=== PATIENT | male | born 1945 | race Caucasian/White ===

== ENCOUNTER 2018-12-07 16:09 | Inpatient (IN) | payer MEDICARE, MEDICAID ==
[~2018-12-07] VITALS: Ht 170.2 cm; Wt 66.0 kg
[~2018-12-07 16:09] MED LIST: ALB0.5UD IH; AMLO5TAB16 PO; FLUT1DIS4 INH; LANS15CA10 PO
[2018-12-07 17:08] LABS: BASOPHILS % (AUTO) 0.2 % (0-1); EOSINOPHILS % (AUTO) 0.1 % (0-6); HEMATOCRIT 42.3 % (42.0-52.0); HEMOGLOBIN 13.9 g/dl (14.0-17.9); LYMPHOCYTES # (AUTO) 1.6 X10'3 (1.1-4.8); LYMPHOCYTES % (AUTO) 10.1 % (21-51); MEAN CORPUSCULAR HEMOGLOBIN 29.9 PG (27.0-31.0); MEAN CORPUSCULAR HGB CONC 32.9 g/dL (33.0-36.5); MEAN CORPUSCULAR VOLUME 90.7 FL (78-98); MONOCYTES # (AUTO) 1.3 X10'3 (0-0.9); MONOCYTES % (AUTO) 8.1 % (2-12); NEUTROPHILS % (AUTO) 81.5 % (42-75); PLATELET COUNT 190 X10'3 (140-440); RED BLOOD COUNT 4.67 X10'6 (4.70-6.10); RED CELL DISTRIBUTION WIDTH 15.2 % (11.5-14.5); WHITE BLOOD COUNT 15.9 X10'3 (4.5-11.0)
[2018-12-07 17:20] LABS: ALANINE AMINOTRANSFERASE 31 U/L (12-78); ALBUMIN 3.8 G/DL (3.4-5.0); ALBUMIN/GLOBULIN RATIO 0.8 (1.1-1.5); ALKALINE PHOSPHATASE 129 IU/L (46-116); ANION GAP 13 (8-16); ASPARTATE AMINO TRANSFERASE 31 U/L (10-37); BILIRUBIN,TOTAL 0.6 MG/DL (0.1-1.0); BLOOD UREA NITROGEN 27 MG/DL (7-18); BUN/CREATININE RATIO 26.7 (5.4-32.0); CALCIUM 9.3 MG/DL (8.5-10.1); CHLORIDE 105 MMOL/L (99-107); CREATININE 1.01 MG/DL (0.60-1.10); GLUCOSE 128 MG/DL (70-104); POTASSIUM 4.1 MMOL/L (3.5-5.1); SODIUM 140 MMOL/L (135-145); TOTAL CARBON DIOXIDE 22.3 MMOL/L (24-32); TOTAL PROTEIN 8.5 G/DL (6.4-8.2); eGFR 73 ML/MIN
[2018-12-07] MEDS ORDERED: ondansetron/PF 4mg/2ml inj IV ONE (20:10)
--- NOTE | 2018-12-07 21:03 | NUR ---
attempted to retrieve urine and gave patient a urinal.
--- NOTE | 2018-12-07 21:14 | NUR ---
COOKIE ZARATE ADVISED TO STRAIGHT CATH PATIENT BECAUSE HE WAS UNABLE TO PRODUCE. DURING STRAIGHT CATH ATTEMPT, PATIENT REFUSED AND SAID TO STOP
[2018-12-07] MEDS ORDERED: CefTRIAXone 2gm/D5W 50ml 50 ML IV ONE (21:20)
[2018-12-07] MEDS ORDERED: azithromycin/NS 500mg/250ml 250 ML IV ONE (21:20)
[2018-12-07 21:49] LABS: D-DIMER 1.51 MG/L FEU (0-0.50)
[2018-12-08] MEDS ORDERED: iohexol 350MG/ML 100ml bottle IV ONE (00:15)
[2018-12-08] MEDS ORDERED: FAMO40OR4 GT (01:33)
[2018-12-08] MEDS ORDERED: ondansetron/PF 4mg/2ml inj IV ONE (01:40)
--- NOTE | 2018-12-08 03:38 | NUR ---
PATIENT READY FOR DISCHARGE. HAVE TRIED TWICE TO REACH HIS FRIEND/CAREGIVER WHOM THE PATIENT LIVES WITH. NO ANSWER, LEFT MESSAGE. NO OTHER INFORMATION FOR DECAL DECORATOR AVAILABLE. HAVE PATIENT'S HOME ADDRESS, BUT CANNOT SEND PATIENT WITHOUT CONFIRMATION THAT CAREGIVER IS AVAILABLE. PATIENT WITH CVA HX, WHEELCHAIR BOUND.
--- NOTE | 2018-12-08 07:15 | NUR ---
Attempted to reach the patient's caregiver, Meena Beatty, as he reported is her name. Message left for Meena to return the call to the ED. Pt's identifying information not left on the message due to questions about the patient's report due to poor historian.
--- NOTE | 2018-12-08 07:31 | NUR ---
Pt's drysorb chux changed and new dry chux placed under the patient due to incontinence of urine. Pt continues to refuse straight cath for urine specimen.
--- NOTE | 2018-12-08 08:39 | NUR ---
Spoke with Sales Operations Analyst regarding the patient's plan for discharge and unable to reach next of kin or caregiver. Phoned all the numbers available to ED staff and unable to locate caregivers or family members. wind operations manager will be available to assist after the CM morning meeting.
--- NOTE | 2018-12-08 09:39 | NUR ---
Spoke with the patient's caregiver Meena who reports the patient is not safe to bring back to her care in the home environment. She reports she was told to bring him to the Emergency department and not answer her phone when the hospital is attempting to reach her. Meena reports the patient is "not of sound mind" and "keeps doing things to harm himself." Meena informed we will speak with Case Management and get back with her regarding the plan of care.
--- NOTE | 2018-12-08 10:36 | NUR ---
Discussed the plan for discharge with the patient. Pt reports he is willing to go home. Asked patient about suicidal ideations or attempts to harm himself and patient denied these thoughts or attempts. Paged Case Management to attempt to assist with plans for discharge to home.
--- NOTE | 2018-12-08 11:27 | NUR ---
kelton alexander [phone]
--- NOTE | 2018-12-08 11:34 | NUR ---
Pt was incontinent of urine. Pt's drysorb chux changed and new ones replaced. Pt's skin cleansed and is noted to be intact.
--- NOTE | 2018-12-08 11:41 | NUR ---
Pt was noted attempting to use the telephone. When asked who he is attempting to contact he responded "my girlfriend." Assisted the patient to dial the phone to call his significant other/caregiver and a voicemail answered. Unable to reach Meena at this time. Asked Legal Administrator to phone Case Management about the situation.
--- NOTE | 2018-12-08 12:55 | NUR ---
spoke with kelton alexander, shes refusing to take care of him. states, im unable to take care of him, his mind is not right and hes doing things to harm himself. said she will call me back and hung up on me.
--- NOTE | 2018-12-08 13:03 | NUR ---
yamileth corley mgr called, and will call back after ua results r back
[2018-12-08] MEDS ORDERED: LIDOcaine 2% 10ml TOPICAL JELLY (Urojet) MM ONE (13:15)
--- NOTE | 2018-12-08 14:00 | NUR ---
PT ANSWERS QUESTIONS APPROPRIATEY, AND COOPERATIVE WITH CARE. NO SELF HARM HAS BEEN NOTED. PT STATES, "IS GARY NOT LETTING ME GO BACK HOME"
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
[2018-12-08 14:10] LABS: CLARITY,URINE CLEAR (Clear); COLOR,URINE YELLOW (Yellow); GLUCOSE, URINE NEGATIVE (Neg); KETONES,URINE NEGATIVE (Neg); LEUKOCYTE ESTERASE ,URINE NEGATIVE (Neg); NITRITES, URINE NEGATIVE (Neg); OCCULT BLOOD,URINE TRACE-INTACT (Neg); PH,URINE 6.5 (4.8-8.0); PROTEIN,URINE NEGATIVE (Neg); UROBILINOGEN,URINE 0.2 E.U/dL (0.2-1.0)
[2018-12-08 14:11] LABS: UA COLLECTION TYPE STRAIGHT CATH
[2018-12-08 14:19] LABS: SQUAMOUS EPITHELIAL CELL,UR FEW /LPF (FEW)
[2018-12-08 14:20] LABS: BACTERIA,URINE FEW /HPF (Neg); MUCUS STRANDS FEW /LPF (Neg); RBC,URINE 0-2 /HPF (0-2); WBC,URINE 0-4 /HPF (0-4)
[2018-12-08 14:21] LABS: HYALINE CASTS 0-3 /LPF (NEGATIVE)
--- NOTE | 2018-12-08 15:00 | NUR ---
JYOTI FROM CASE MGT CALLED AND STATED THAT SHE WAS TOLD THAT PT DOES NOT MEET CRITERIA FOR ADMISSION HAVING A UTI. STATED THAT SHE WAS GOING TO CONTACT ADARSH WITH GLUE JOINTER OPERATOR FOR ASSISTANCE
--- NOTE | 2018-12-08 16:32 | NUR ---
LEFT MESSAGE ON GARY'S RECORDED STATING, "RN OTOLARYNGOLOGY HAS BEEN TRYING TO FIND PLACEMENT BUT DOES TAKE TIME''. AND HE IS NOT ELIGIBLE AT THIS TIME FOR ADMISSION INTO THE HOSPITAL. IM JUST GIVING YOU A HEADS UP THAT THIS IS CONSIDERED ABANDONMENT AND APS WILL BE CALLED AND FORM FILLED OUT.
[2018-12-08] MEDS ORDERED: OXYC-150 PO (17:38)
[2018-12-08] MEDS ORDERED: TIZA4TAB11 PO (17:38)
[2018-12-08] MEDS ORDERED: FAMO40TA7 PO (17:38)
[2018-12-08] MEDS ORDERED: ATOR-2 PO (17:38)
[2018-12-08] MEDS ORDERED: LISI10TA4 PO (17:38)
[2018-12-08] MEDS ORDERED: SERT25TA5 PO (17:38)
[2018-12-08] MEDS ORDERED: ACET-2119 PO (17:38)
[2018-12-08] MEDS ORDERED: OXYC-511 PO (17:38)
[2018-12-08] MEDS ORDERED: GABA600T13 PO (17:38)
[2018-12-08] MEDS ORDERED: CLOP75TA35 PO (17:38)
[2018-12-08] MEDS ORDERED: VENL75TA4 PO (17:38)
[2018-12-08] MEDS ORDERED: AMLO10TA2 PO (17:38)
--- NOTE | 2018-12-08 20:00 | NUR ---
PT TOLERATING SMALL SIPS OF WATER WELL.
--- NOTE | 2018-12-08 21:25 | NUR ---
PT PLACED ON A HOSPITAL BED
--- NOTE | 2018-12-08 21:49 | NUR ---
PT STATES, MY SHOULDER HURTS. " I HURT IT WHEN I WAS TRYING TO PULL MYSELF UP" XRAY OF LEFT SHOULDER ORDERED.
--- NOTE | 2018-12-09 01:00 | NUR ---
Pt given sip of water, per request. Pt tolerated with no choking or coughing noted. No other needs at this time.
--- NOTE | 2018-12-09 03:27 | NUR ---
Pt sleeping, respirations even and non labored.
[2018-12-09] MEDS ORDERED: oxyCODONE/APAP 10/325mg tablet JT ONE (04:40)
--- NOTE | 2018-12-09 05:00 | NUR ---
Pt hygiene performed and Pt repositioned. Pt given water, per Pt request. Pt tolerated well with no coughing or choking.
--- NOTE | 2018-12-09 05:25 | NUR ---
Pt medicated with 1 tab Percocet. Tolerated PO med with no coughing or choking noted.
--- NOTE | 2018-12-09 06:40 | NUR ---
REPORT RECIEVED FROM CECY DAMON AND CARE ASSUMMED. PT RESTING IN POC WITHOUT PAIN AFTER PERCOCET. VSS. SPOKE WITH AM ER PROVIDER DR. PINEDA AND ADVISED OF SITUATION. HE PUT IN AN ORDER FOR HOSPITALIST TO DO SOCIAL ADMIT ON PT. PT STATES HE IS CLEAN AND DRY AT THIS TIME. ON HOSPITAL BED.
--- NOTE | 2018-12-09 07:00 | NUR ---
PT PEG TUBE CHECKED, MET RESISTANCE AND DIFFICULT TO ASPIRATE. MD NOTIFIED FOR X-RAY PLACEMENT.
[2018-12-09] MEDS ORDERED: mag hydrox/Alum hydrox/simeth 30ml oral suspension PO PRN (07:35)
[2018-12-09] MEDS ORDERED: acetaminophen 325mg tablet PO PRN ×2 (07:35→09:30)
[2018-12-09] MEDS ORDERED: HYDROcodone/acetaminophen 5mg/325mg tablet PO PRN (07:35)
[2018-12-09] MEDS ORDERED: magnesium 2GM in 50ml NS 50 ML IV PRN (07:35)
[2018-12-09] MEDS ORDERED: potassium CL 10mEq/100ml bag 100 ML IV PRN (07:35)
[2018-12-09] MEDS ORDERED: magnesium hydroxide 30ml (MOM) UD suspension PO PRN (07:35)
[2018-12-09] MEDS ORDERED: magnesium Cl slow-release 64mg tablet PO PRN (07:35)
[2018-12-09] MEDS ORDERED: potassium Cl 20 mEq SR tablet PO PRN ×2 (07:35)
[2018-12-09] MEDS ORDERED: morphine 2 MG/ML inj. syringe IV PRN (07:35)
[2018-12-09] MEDS ORDERED: magnesium 4gm in 100ml NS 100 ML IV PRN (07:35)
--- NOTE | 2018-12-09 07:56 | NUR ---
X-RAY ORDERED TO ENSURE PATENCY OF FEEDING UBE PRIOR TO USE.
[2018-12-09] MEDS: K and/or MAG REPLACEMENT MC SCH (07:58)
[2018-12-09] MEDS: enoxaparin 40mg/0.4ml syringe SQ SCH (08:00)
--- NOTE | 2018-12-09 08:19 | NUR ---
HOSPITALIST PAGED TO CLAIFY DIET AND ACTIVITY ORDERS.
[2018-12-09] MEDS ORDERED: diatrozoate meglu/diatrozoate sod (37% iodine) 120ML oral solution PO ONE (08:35)
[2018-12-09] MEDS ORDERED: diatr meglu/diatrizoate 30ml oral sol.-(3 dose) bottle PO ONE (08:40)
--- NOTE | 2018-12-09 08:45 | NUR ---
AT THIS TIME.SPOKE WITH DR. RUSSELL, NEW ORDERS RECIEVED FOR NEGATIVE RETOUCHER CONSULT FOR TUBE-FEEDINGS. ADVISED HIM PT HAS A BUNCH OF HOME MEDS THAT WERE NOT ORDERED OR CONTINUED. STATED HE WILL REVIEW THE MED REC NOW. ACCU CHECK AND VSS.
[2018-12-09] MEDS ORDERED: lisinopril 20mg tablet PO SCH (09:30)
[2018-12-09] MEDS ORDERED: albuterol 2.5 MG/3 ML nebule NEB PRN (09:30)
[2018-12-09] MEDS ORDERED: cyclobenzaprine 10mg tablet PO PRN (09:30)
[2018-12-09] MEDS ORDERED: oxyCODONE/APAP 10/325mg tablet PO PRN ×2 (09:30)
[2018-12-09] MEDS ORDERED: famotidine 20mg tablet PO SCH (09:30)
[2018-12-09] MEDS ORDERED: atorvastatin 20mg tablet PO SCH (10:00)
[2018-12-09] MEDS ORDERED: gabapentin 300mg capsule PO SCH (10:00)
[2018-12-09] MEDS ORDERED: amLODIPine 5mg tablet PO SCH (10:00)
[2018-12-09] MEDS ORDERED: sertraline 25mg tablet PO SCH (10:00)
[2018-12-09] MEDS ORDERED: clopidogrel 75mg tablet PO SCH (10:00)
[2018-12-09] MEDS ORDERED: venlafaxine XR 75mg capsule (Q24H) PO SCH (10:00)
--- NOTE | 2018-12-09 10:25 | NUR ---
PT WANTING TO SPEAK WITH BEFORE HE GETS HIS LOVENOX SHOT. PAGED.
--- NOTE | 2018-12-09 11:00 | NUR ---
GLUCERNA TUBE FEED 360 ML VIA PEG; 200 ML H2O VIA PEG WITH MEDICATIONS
--- NOTE | 2018-12-09 12:59 | NUR ---
PER REPORT PATIENT WAS AT [facility] AND HIS INVERTEBRATE PALEONTOLOGIST TOOK HIM OUT OF THAT FACILITY AND BROUGHT HIM TO HER HOME AND THE INVERTEBRATE PALEONTOLOGIST NOW REFUSES TO TAKE THE PATIENT BACK HOME. APS REPORT FILED
--- NOTE | 2018-12-09 13:15 | NUR ---
Patient in room ED 11. I have received report from Sirena SAM and had the opportunity to ask questions and assume patient care.
[2018-12-09 13:35] VITALS: BP 129/78
--- NOTE | 2018-12-09 15:22 | NUR ---
TF diet consult: Pt seen at bedside states he takes 360 mL of Glucerna QID with water flushes before and after each feeding. Pt states he does not take anything PO and everything is done through the PEG. Unable to obtain any additional information from pt as pt grew very tired and started to fall asleep. TF recommendations below to follow patient's home regimen will meet 100% of patient's estimated nutrient needs. No documented LBM. Pt just admit, pending H&P. Per ED report pt s/p CT which did not demonstrate any pneumonia or PE however did demonstrate esophagitis which is consistent with patient's c/o N/V. Will continue to follow. Recommendations: 1) Bolus feeds of Glucerna QID at 0800, 1200, 1600, 2000. To begin at 150 mL/bolus and advance by 50 mL each bolus as tolerated to goal rate of 360 mL/bolus. To provide: total volume of 1440 mL/day, 1728 kcal, 86 g protein, and 1159 mL water 2) Additional 70 mL water flush before and after each feeding 3) Prealbumin q / 4) Daily weights Addendum: 12/09/18 at [address] Amended: Links added.
[2018-12-09] MEDS ORDERED: acetaminophen 325mg tablet PEG PRN ×2 (16:26→16:27)
[2018-12-09] MEDS ORDERED: cyclobenzaprine 10mg tablet PEG PRN (16:38)
[2018-12-09] MEDS ORDERED: famotidine 20mg tablet PEG SCH (16:43)
[2018-12-09] MEDS ORDERED: HYDROcodone/acetaminophen 7.5MG/325MG per 15ml UD CUP PEG PRN (16:45)
[2018-12-09] MEDS: dextrose 5%-1/2 normal saline 1,000 ML IV SCH (16:47)
[2018-12-09] MEDS ORDERED: magnesium hydroxide 30ml (MOM) UD suspension PEG PRN (16:47)
[2018-12-09] MEDS ORDERED: mag hydrox/Alum hydrox/simeth 30ml oral suspension PEG PRN (16:48)
[2018-12-09] MEDS ORDERED: oxyCODONE/APAP 10/325mg tablet PEG PRN (16:49)
[2018-12-09] MEDS ORDERED: POTASSIUM BICARB 20meq eff tab 20 MEQ TABLET.EFF PEG PRN ×2 (16:50→16:51)
--- NOTE | 2018-12-09 17:21 | NUR ---
patient unable to stand and there's no bed scale on patients bed Addendum: 12/09/18 at 1722 by Carlos Hairston RN Amended: Links added.
[2018-12-09 18:00] VITALS: BP 110/68
--- NOTE | 2018-12-09 18:10 | NUR ---
Problems reprioritized. Patient report given, questions answered & plan of care reviewed with Mike SAM.
[2018-12-09 22:00] VITALS: BP 105/61
[2018-12-10 06:27] LABS: ALBUMIN 3.4 G/DL (3.4-5.0); ANION GAP 9 (8-16); BLOOD UREA NITROGEN 40 MG/DL (7-18); BUN/CREATININE RATIO 39.6 (5.4-32.0); CALCIUM 9.1 MG/DL (8.5-10.1); CHLORIDE 109 MMOL/L (99-107); CREATININE 1.01 MG/DL (0.60-1.10); GLUCOSE 92 MG/DL (70-104); POTASSIUM 3.4 MMOL/L (3.5-5.1); SODIUM 145 MMOL/L (135-145); TOTAL CARBON DIOXIDE 26.7 MMOL/L (24-32); eGFR 73 ML/MIN
--- NOTE | 2018-12-10 06:28 | NUR ---
Problems reprioritized. Patient report given, questions answered & plan of care reviewed with Nay SAM.
[2018-12-10 06:45] LABS: BASOPHILS % (AUTO) 0.2 % (0-1); EOSINOPHILS % (AUTO) 0.1 % (0-6); HEMATOCRIT 39.1 % (42.0-52.0); HEMOGLOBIN 12.9 g/dl (14.0-17.9); LYMPHOCYTES # (AUTO) 1.8 X10'3 (1.1-4.8); LYMPHOCYTES % (AUTO) 13.7 % (21-51); MEAN CORPUSCULAR HGB CONC 33.1 g/dL (33.0-36.5); MEAN CORPUSCULAR VOLUME 90.7 FL (78-98); MEAN PLATELET VOLUME 10.2 FL (7.4-10.4); MONOCYTES # (AUTO) 1.3 X10'3 (0-0.9); PLATELET COUNT 158 X10'3 (140-440); RED BLOOD COUNT 4.31 X10'6 (4.70-6.10); RED CELL DISTRIBUTION WIDTH 15.7 % (11.5-14.5); WHITE BLOOD COUNT 13.2 X10'3 (4.5-11.0)
[2018-12-10 07:09] VITALS: BP 128/64
[2018-12-10] MEDS: atorvastatin 20mg tablet PEG SCH (08:00)
[2018-12-10] MEDS: enoxaparin 40mg/0.4ml syringe SQ SCH (08:00)
[2018-12-10] MEDS: clopidogrel 75mg tablet PEG SCH (08:00)
[2018-12-10] MEDS: sertraline 25mg tablet PEG SCH (08:00)
[2018-12-10] MEDS: amLODIPine 5mg tablet PEG SCH (08:00)
[2018-12-10] MEDS: lisinopril 20mg tablet PEG SCH (08:00)
[2018-12-10] MEDS: K and/or MAG REPLACEMENT MC SCH (08:00)
[2018-12-10] MEDS: venlafaxine 25mg tablet PEG SCH ×3 (11:26→21:00)
[2018-12-10] MEDS: gabapentin 300mg capsule PEG SCH ×2 (11:26→20:00)
[2018-12-10] MEDS: dextrose 5%-1/2 normal saline 1,000 ML IV SCH (11:29)
[2018-12-10 11:54] VITALS: BP 139/66
--- NOTE | 2018-12-10 12:08 | NUR ---
F/u: Per RN, TF held yesterday r/t concern for tube clog w/ pt to remain NPO w/ D5/NS per MD. No nutrition at this time pending BSS tomorrow w/ IR to examine PEG per RN. Will monitor for BSS recs and PEG results. Addendum: 12/10/18 at [address] Amended: Links added.
[2018-12-10] MEDS: morphine 2 MG/ML inj. syringe IV PRN ×2 (17:24→22:33)
[2018-12-10 18:00] VITALS: BP 145/75
[2018-12-10 22:00] VITALS: BP 150/66
[2018-12-10] MEDS ORDERED: diatr meglu/diatrizoate 30ml oral sol.-(3 dose) bottle NG ONE (22:00)
[2018-12-11] MEDS ORDERED: rocuronium 10mg/ml inj IV ONE ×2 (06:00)
[2018-12-11] MEDS ORDERED: etomidate 2mg/ml inj. ONE (06:00)
[2018-12-11] MEDS ORDERED: 0.9 % SODIUM CHLORIDE 10 ML VIAL ONE ×3 (06:00)
[2018-12-11 06:29] LABS: ALBUMIN 3.1 G/DL (3.4-5.0); ANION GAP 10 (8-16); BLOOD UREA NITROGEN 26 MG/DL (7-18); BUN/CREATININE RATIO 32.1 (5.4-32.0); CALCIUM 8.9 MG/DL (8.5-10.1); CHLORIDE 109 MMOL/L (99-107); CREATININE 0.81 MG/DL (0.60-1.10); GLUCOSE 91 MG/DL (70-104); MAGNESIUM 1.9 MG/DL (1.5-2.4); POTASSIUM 3.1 MMOL/L (3.5-5.1); PREALBUMIN 17.8 MG/DL (19-36); SODIUM 144 MMOL/L (135-145); eGFR > 90 ML/MIN
--- NOTE | 2018-12-11 06:30 | NUR ---
Patient in room ORTHO 4023. I have received report from Nay SAM and had the opportunity to ask questions and assume patient care.
[2018-12-11 06:45] LABS: BASOPHILS % (AUTO) 0.5 % (0-1); EOSINOPHILS % (AUTO) 0.1 % (0-6); HEMATOCRIT 39.3 % (42.0-52.0); HEMOGLOBIN 13.2 g/dl (14.0-17.9); LYMPHOCYTES # (AUTO) 1.6 X10'3 (1.1-4.8); MEAN CORPUSCULAR HEMOGLOBIN 30.3 PG (27.0-31.0); MEAN CORPUSCULAR HGB CONC 33.5 g/dL (33.0-36.5); MEAN CORPUSCULAR VOLUME 90.5 FL (78-98); MEAN PLATELET VOLUME 10.2 FL (7.4-10.4); MONOCYTES % (AUTO) 10.5 % (2-12); NEUTROPHILS # (AUTO) 6.8 X10'3 (1.8-7.7); NEUTROPHILS % (AUTO) 71.9 % (42-75); PLATELET COUNT 143 X10'3 (140-440); RED BLOOD COUNT 4.34 X10'6 (4.70-6.10); RED CELL DISTRIBUTION WIDTH 14.8 % (11.5-14.5); WHITE BLOOD COUNT 9.4 X10'3 (4.5-11.0)
[2018-12-11 07:15] VITALS: BP 129/76
[2018-12-11] MEDS: gabapentin 300mg capsule PEG SCH ×2 (08:00→19:34)
[2018-12-11] MEDS: sertraline 25mg tablet PEG SCH (08:00)
[2018-12-11] MEDS: K and/or MAG REPLACEMENT MC SCH (09:00)
[2018-12-11] MEDS: atorvastatin 20mg tablet PEG SCH (09:02)
[2018-12-11] MEDS: amLODIPine 5mg tablet PEG SCH (09:02)
[2018-12-11] MEDS: venlafaxine 25mg tablet PEG SCH ×3 (09:02→20:17)
[2018-12-11] MEDS: lisinopril 20mg tablet PEG SCH (09:03)
[2018-12-11] MEDS: clopidogrel 75mg tablet PEG SCH (09:03)
--- NOTE | 2018-12-11 09:12 | NUR ---
PAGER ID: [phone] MESSAGE: PT IN ROOM 3039H RICHARDSON- UNABLE TO GO TO IR FOR PEG TUBE REPLACE UNIL 12/14. SPEECH THERAPY EVAL ORDERED FOR TODAY. THANK YOU. JESSICA SAM [phone]
[2018-12-11] MEDS: dextrose 5%-1/2 normal saline 1,000 ML IV SCH (09:27)
[2018-12-11] MEDS: potassium CL 10mEq/100ml bag 100 ML IV PRN ×3 (09:50→18:29)
[2018-12-11 10:30] VITALS: BP 129/71
--- NOTE | 2018-12-11 12:04 | NUR ---
Problems reprioritized. Patient report given, questions answered & plan of care reviewed with Nay SAM.
--- NOTE | 2018-12-11 12:25 | NUR ---
Student documentation:I have reviewed and agree with all interventions, assessments performed and documented by Madie Hung.
--- NOTE | 2018-12-11 14:04 | NUR ---
PT REFUSING CORPAK. AWARE. EDUCATED PT ABOUT BENEFITS AND RISK.
[2018-12-11] MEDS ORDERED: ipratropium/albuterol 3ml nebule NEB PRN (16:50)
[2018-12-11] MEDS: enoxaparin 40mg/0.4ml syringe SQ SCH (16:55)
[2018-12-11] MEDS: morphine 2 MG/ML inj. syringe IV PRN (16:56)
--- NOTE | 2018-12-11 17:19 | NUR ---
TF Consult: Pt agreed to NG placement today during RD visit; pending new PEG but has to wait 5 days to ensure is off blood thinners prior to OR per RN. RD d/w RN; need prior TF diet completed prior to new TF order to be recommended by RD. Recs below given new continuous rate pt needs. Recommendations: 1) Continuous NGTF until new PEG placed per MD using Glucerna 1.2 at 60ml/hr goal. Initiate at 30ml/hr and advance 20ml Q8 to goal as tolerated. To provide 1440ml fluid, 1166ml free water, 1728kcals, and 86g protein. 2) water flush 200ml Q4 3) Bolus feeds of Glucerna QID at 0800, 1200, 1600, 2000. To begin at 150 mL/bolus and advance by 50 mL each bolus as tolerated to goal rate of 360 mL/bolus. To provide: total volume of 1440 mL/day, 1728 kcal, 86 g protein, and 1159 mL water 4) IF bolus feeds; 70 mL water flush before and after each bolus 5) Prealbumin q /; Daily weights Addendum: 12/11/18 at [address] Amended: Links added. Addendum: 12/11/18 at [address] TF Consult: Pt agreed to NG placement today during RD visit; pending new PEG but has to wait 5 days to ensure is off blood thinners prior to OR per RN. RD d/w RN; prior TF diet order has no been completed. New recs below given pt needs on continuous NGTF. Recommendations: 1) Continuous NGTF until new PEG placed per MD using Glucerna 1.2 at 60ml/hr goal. Initiate at 30ml/hr and advance 20ml Q8 to goal as tolerated. To provide 1440ml fluid, 1166ml free water, 1728kcals, and 86g protein. 2) water flush 200ml Q4 3) Bolus feeds of Glucerna QID at 0800, 1200, 1600, 2000. To begin at 150 mL/bolus and advance by 50 mL each bolus as tolerated to goal rate of 360 mL/bolus. To provide: total volume of 1440 mL/day, 1728 kcal, 86 g protein, and 1159 mL water 4) IF bolus feeds; 70 mL water flush before and after each bolus 5) Prealbumin q /; Daily weights
[2018-12-11] MEDS: ipratropium/albuterol 3ml nebule NEB SCH (20:17)
[2018-12-11 22:00] VITALS: BP 130/71
[2018-12-12] MEDS: morphine 2 MG/ML inj. syringe IV PRN ×4 (01:07→19:46)
[2018-12-12] MEDS: dextrose 5%-1/2 normal saline 1,000 ML IV SCH ×2 (04:02→22:36)
[2018-12-12 06:18] LABS: BASOPHILS % (AUTO) 0.2 % (0-1); EOSINOPHILS % (AUTO) 0 % (0-6); HEMATOCRIT 39.8 % (42.0-52.0); HEMOGLOBIN 13.4 g/dl (14.0-17.9); LYMPHOCYTES % (AUTO) 11.4 % (21-51); MEAN CORPUSCULAR HGB CONC 33.6 g/dL (33.0-36.5); MEAN CORPUSCULAR VOLUME 89.4 FL (78-98); MEAN PLATELET VOLUME 9.9 FL (7.4-10.4); MONOCYTES # (AUTO) 1.6 X10'3 (0-0.9); MONOCYTES % (AUTO) 8.9 % (2-12); NEUTROPHILS # (AUTO) 13.9 X10'3 (1.8-7.7); NEUTROPHILS % (AUTO) 79.5 % (42-75); PLATELET COUNT 166 X10'3 (140-440); RED BLOOD COUNT 4.45 X10'6 (4.70-6.10); RED CELL DISTRIBUTION WIDTH 14.8 % (11.5-14.5); WHITE BLOOD COUNT 17.5 X10'3 (4.5-11.0)
--- NOTE | 2018-12-12 06:22 | NUR ---
Report given to Nay SAM and Yudi SAM.
[2018-12-12 06:23] LABS: ALBUMIN 3.1 G/DL (3.4-5.0); ANION GAP 13 (8-16); BLOOD UREA NITROGEN 21 MG/DL (7-18); BUN/CREATININE RATIO 25.9 (5.4-32.0); CALCIUM 8.7 MG/DL (8.5-10.1); CHLORIDE 108 MMOL/L (99-107); CREATININE 0.81 MG/DL (0.60-1.10); GLUCOSE 116 MG/DL (70-104); MAGNESIUM 1.8 MG/DL (1.5-2.4); POTASSIUM 3.4 MMOL/L (3.5-5.1); SODIUM 142 MMOL/L (135-145); eGFR > 90 ML/MIN
[2018-12-12 06:55] VITALS: BP 157/84
[2018-12-12] MEDS: K and/or MAG REPLACEMENT MC SCH (07:01)
[2018-12-12] MEDS: amLODIPine 5mg tablet PEG SCH (07:02)
[2018-12-12] MEDS: gabapentin 300mg capsule PEG SCH ×2 (07:02→22:26)
[2018-12-12] MEDS: lisinopril 20mg tablet PEG SCH (07:02)
[2018-12-12] MEDS: venlafaxine 25mg tablet PEG SCH ×3 (07:02→22:25)
[2018-12-12] MEDS: atorvastatin 20mg tablet PEG SCH (07:02)
[2018-12-12] MEDS: sertraline 25mg tablet PEG SCH (07:03)
[2018-12-12] MEDS: ipratropium/albuterol 3ml nebule NEB SCH ×3 (08:37→20:56)
[2018-12-12] MEDS: enoxaparin 40mg/0.4ml syringe SQ SCH (09:31)
[2018-12-12] MEDS ORDERED: magnesium 2GM in 50ml NS 50 ML IV PRN (10:05)
[2018-12-12] MEDS ORDERED: magnesium 4gm in 100ml NS 100 ML IV PRN (10:05)
[2018-12-12 10:07] VITALS: BP 140/77
[2018-12-12] MEDS ORDERED: LIDOcaine 1%/PF 5ML 10 MG/ML VIAL SQ ONE (10:40)
[2018-12-12] MEDS ORDERED: fentaNYL/PF 50MCG/1 ML 2ML syringe IV PRN (10:40)
[2018-12-12] MEDS ORDERED: iohexol 300 MG/1 ML 50ml polymer ONE (10:51)
[2018-12-12] MEDS: ondansetron/PF 4mg/2ml inj IV PRN ×2 (11:17→19:43)
[2018-12-12] MEDS: potassium CL 10mEq/100ml bag 100 ML IV PRN ×3 (11:22→20:17)
--- NOTE | 2018-12-12 14:46 | NUR ---
Page Sent PAGER ID: [phone] MESSAGE: PT IN ROOM 4023B RICHARDSON- HIS G TUBE WAS REPLACED BY ANGIO AT 11AM TODAY. OK TO START TUBE FEED AT 1500? THANK YOU. JESSICA SAM [phone]
--- NOTE | 2018-12-12 15:04 | NUR ---
F/u: Pt s/p new PEG placement w/ continuous PEG feeds to start at 30ml/hr at 3PM today (4 hours s/p placement) per MD. Pt only needed new PEG and not new PEG site surgery per RN. LBM 12/11. Na 142; to continue water flushes as ordered. Will monitor for TF tolerance; if tolerated continuous at goal would benefit from return to bolus feeds since tolerating prior goal rate. Recommendations: 1) Continuous PEG feeds per MD using Glucerna 1.2 at60ml/hr goal. Initiate at 30ml/hr and advance 20ml Q8 to goal as tolerated. To provide 1440ml fluid, 1166ml free water, 1728kcals, and 86gprotein. 2) water flush 200ml Q4 3) IF return to Bolus feeds; Glucerna QID at 0800, 1200, 1600, 2000. To begin at 150mL/bolus and advance by 50 mL each bolus as tolerated to goal rate of 360mL/bolus. To provide: total volume of 1440 mL/day, 1728 kcal, 86 g protein, and 1159 mL water 4) IF bolus feeds; 70 mL water flush before and after each bolus 5) Prealbumin q /; Daily weights Addendum: 12/12/18 at [address] Amended: Links added.
--- NOTE | 2018-12-12 15:45 | NUR ---
patient nausated no svn given Addendum: 12/12/18 at 1546 by Dina Asencio RT Amended: Links added.
[2018-12-12 20:34] VITALS: BP 134/75
[2018-12-13 05:00] LABS: BASOPHILS % (AUTO) 0.1 % (0-1); EOSINOPHILS % (AUTO) 0.1 % (0-6); HEMATOCRIT 36.7 % (42.0-52.0); HEMOGLOBIN 12.3 g/dl (14.0-17.9); LYMPHOCYTES # (AUTO) 1.9 X10'3 (1.1-4.8); LYMPHOCYTES % (AUTO) 13.6 % (21-51); MEAN CORPUSCULAR HGB CONC 33.5 g/dL (33.0-36.5); MEAN CORPUSCULAR VOLUME 89.7 FL (78-98); MEAN PLATELET VOLUME 9.8 FL (7.4-10.4); MONOCYTES # (AUTO) 1.5 X10'3 (0-0.9); NEUTROPHILS # (AUTO) 10.4 X10'3 (1.8-7.7); NEUTROPHILS % (AUTO) 75.2 % (42-75); PLATELET COUNT 143 X10'3 (140-440); RED BLOOD COUNT 4.09 X10'6 (4.70-6.10); RED CELL DISTRIBUTION WIDTH 14.8 % (11.5-14.5); WHITE BLOOD COUNT 13.9 X10'3 (4.5-11.0)
[2018-12-13 05:08] LABS: ALBUMIN 2.7 G/DL (3.4-5.0); ANION GAP 10 (8-16); BLOOD UREA NITROGEN 18 MG/DL (7-18); BUN/CREATININE RATIO 22.8 (5.4-32.0); CHLORIDE 106 MMOL/L (99-107); CREATININE 0.79 MG/DL (0.60-1.10); GLUCOSE 121 MG/DL (70-104); MAGNESIUM 1.8 MG/DL (1.5-2.4); POTASSIUM 3.1 MMOL/L (3.5-5.1); SODIUM 137 MMOL/L (135-145); TOTAL CARBON DIOXIDE 20.8 MMOL/L (24-32); eGFR > 90 ML/MIN
--- NOTE | 2018-12-13 05:48 | NUR ---
report given to tanesha SAM.
[2018-12-13 06:00] VITALS: BP 128/76
[2018-12-13] MEDS: atorvastatin 20mg tablet PEG SCH (07:42)
[2018-12-13] MEDS: amLODIPine 5mg tablet PEG SCH (07:42)
[2018-12-13] MEDS: venlafaxine 25mg tablet PEG SCH ×3 (07:42→20:16)
[2018-12-13] MEDS: gabapentin 300mg capsule PEG SCH ×2 (07:42→20:16)
[2018-12-13] MEDS: lisinopril 20mg tablet PEG SCH (07:42)
[2018-12-13] MEDS: sertraline 25mg tablet PEG SCH (07:42)
[2018-12-13] MEDS: enoxaparin 40mg/0.4ml syringe SQ SCH (07:43)
[2018-12-13] MEDS: potassium CL 10mEq/100ml bag 100 ML IV PRN (07:44)
[2018-12-13] MEDS: K and/or MAG REPLACEMENT MC SCH (08:00)
--- NOTE | 2018-12-13 08:05 | NUR ---
Student Medication Administration: For this medication-pass time frame, all medication were reviewed, dispensed, administered and documented per hospital policy by SN Rashid [facility]. Addendum: 12/13/18 at 0837 by Michelle Valdivia - Instructor CECY Med administration was supervised by CECY Morris MANAGING EDITOR instructor [facility].
[2018-12-13] MEDS: ipratropium/albuterol 3ml nebule NEB SCH ×3 (08:48→19:23)
--- NOTE | 2018-12-13 09:02 | NUR ---
Patient in room ORTHO 4023. I have received report from Dian SAM and had the opportunity to ask questions and assume patient care.
[2018-12-13] MEDS ORDERED: potassium Cl 20 mEq SR tablet PO PRN ×2 (09:25)
[2018-12-13] MEDS: oxyCODONE/APAP 10/325mg tablet PEG PRN ×2 (09:42→17:17)
[2018-12-13 10:00] VITALS: BP 140/65
[2018-12-13] MEDS ORDERED: POTASSIUM BICARB 20meq eff tab 20 MEQ TABLET.EFF PO PRN (11:45)
[2018-12-13] MEDS: POTASSIUM BICARB 20meq eff tab 20 MEQ TABLET.EFF PO PRN ×2 (11:49→16:54)
--- NOTE | 2018-12-13 12:12 | NUR ---
Student documentation: I have reviewed and agree with all interventions, assessments performed and documented by SN Rashid [facility].
[2018-12-13 18:00] VITALS: BP 99/60
--- NOTE | 2018-12-13 18:27 | NUR ---
Problems reprioritized. Patient report given, questions answered & plan of care reviewed with Dian SAM.
[2018-12-13] MEDS: ondansetron/PF 4mg/2ml inj IV PRN (20:23)
[2018-12-13] MEDS: dextrose 5%-1/2 normal saline 1,000 ML IV SCH (20:42)
[2018-12-14] VITALS (9 sets, daily range): BP systolic 80–153; BP diastolic 43–79
[2018-12-14] MEDS: oxyCODONE/APAP 10/325mg tablet PEG PRN ×2 (01:44→08:32)
[2018-12-14 06:03] LABS: BASOPHILS % (AUTO) 0.1 % (0-1); EOSINOPHILS # (AUTO) 0.1 X10'3 (0-0.9); EOSINOPHILS % (AUTO) 0.4 % (0-6); HEMATOCRIT 36.6 % (42.0-52.0); HEMOGLOBIN 12.2 g/dl (14.0-17.9); LYMPHOCYTES # (AUTO) 1.6 X10'3 (1.1-4.8); LYMPHOCYTES % (AUTO) 8.9 % (21-51); MEAN CORPUSCULAR HEMOGLOBIN 30.2 PG (27.0-31.0); MEAN CORPUSCULAR HGB CONC 33.4 g/dL (33.0-36.5); MEAN CORPUSCULAR VOLUME 90.3 FL (78-98); MONOCYTES # (AUTO) 1.7 X10'3 (0-0.9); MONOCYTES % (AUTO) 9.7 % (2-12); NEUTROPHILS # (AUTO) 14.3 X10'3 (1.8-7.7); NEUTROPHILS % (AUTO) 80.9 % (42-75); PLATELET COUNT 131 X10'3 (140-440); RED BLOOD COUNT 4.05 X10'6 (4.70-6.10); RED CELL DISTRIBUTION WIDTH 15.5 % (11.5-14.5); WHITE BLOOD COUNT 17.7 X10'3 (4.5-11.0)
--- NOTE | 2018-12-14 06:17 | NUR ---
report given to mery Gonzalez.
[2018-12-14 06:33] LABS: ALBUMIN 2.6 G/DL (3.4-5.0); ANION GAP 7 (8-16); BLOOD UREA NITROGEN 20 MG/DL (7-18); BUN/CREATININE RATIO 18.3 (5.4-32.0); CHLORIDE 103 MMOL/L (99-107); CREATININE 1.09 MG/DL (0.60-1.10); GLUCOSE 221 MG/DL (70-104); MAGNESIUM 1.9 MG/DL (1.5-2.4); POTASSIUM 3.9 MMOL/L (3.5-5.1); PREALBUMIN 14.3 MG/DL (19-36); SODIUM 136 MMOL/L (135-145); TOTAL CARBON DIOXIDE 25.8 MMOL/L (24-32); eGFR 67 ML/MIN
--- NOTE | 2018-12-14 07:08 | NUR ---
Patient in room ORTHO 4023. I have received report from Dian SAM and had the opportunity to ask questions and assume patient care.
[2018-12-14] MEDS: K and/or MAG REPLACEMENT MC SCH (07:11)
[2018-12-14] MEDS: ipratropium/albuterol 3ml nebule NEB SCH ×3 (07:52→23:39)
[2018-12-14] MEDS: gabapentin 300mg capsule PEG SCH ×2 (08:26→20:00)
[2018-12-14] MEDS: venlafaxine 25mg tablet PEG SCH ×3 (08:27→21:00)
[2018-12-14] MEDS: sertraline 25mg tablet PEG SCH (08:31)
[2018-12-14] MEDS: atorvastatin 20mg tablet PEG SCH (08:32)
[2018-12-14] MEDS: amLODIPine 5mg tablet PEG SCH (08:33)
[2018-12-14] MEDS: enoxaparin 40mg/0.4ml syringe SQ SCH (08:33)
[2018-12-14] MEDS: lisinopril 20mg tablet PEG SCH (08:34)
--- NOTE | 2018-12-14 16:16 | NUR ---
nii hospitalist [phone] Patient very gurgle today and started vomiting, can we get a chest xray please, will continue to monitor Addendum: 12/19/18 at 0843 by Carlos Hairston RN late entry no response from the hospitalist about request for chest xray, will continue to monitor
[2018-12-14] MEDS: dextrose 5%-1/2 normal saline 1,000 ML IV SCH (16:47)
--- NOTE | 2018-12-14 17:42 | NUR ---
Mirela hospitalist [phone] MESSAGE: re:[id number] Rubi fisher patients o2 went down to the mid 70's put on 5L came up to high 80's, rt in room to suction patient its not helping, will continue to monitor Addendum: 12/19/18 at 0849 by Carlos Hairston RN Late entry No returned phone call from hospitalist yet, patients O2 is in the mid 80's not increasing since put on 5L n/c, respiratory therapist is suctioning patient because patient isn't able to excoriate sputum, patient vomited from suction and it appears to be tube feed, i will stop tube feed until i hear back from hospitalist
--- NOTE | 2018-12-14 18:08 | NUR ---
PAGER ID: [phone] MESSAGE: RE: [id number] CLAUD. RICHARDSON Called Rapid; patient in respiratory distress. [facility] 4021
[2018-12-14 18:10] LABS: ABG BASE EXCESS -6.9 mmol/L (-2.0-3.0); ABG HCO3 17.9 mmol/L (22.0-26.0); ABG OXYGEN SATURATION 87.4 % (95-98); ABG PCO2 (T) 33.9 mmHg (35.0-45.0); ABG PH (T) 7.341 (7.350-7.450); ABG PO2 (T) 56.1 mmHg (83-108); ALLEN'S TEST Positive; FCOHb 0.6 % (0.5-1.5); FLOW 5 L/min; FMetHb 0.2 % (0.3-1.12); FO2Hb 86.7 % (94-100); TOTAL HEMOGLOBIN 13.8 G/dl (14.0-17.9)
--- NOTE | 2018-12-14 18:20 | NUR ---
late entry rapid response called, respiratory took ABG per standing orders and put on 15L high flow O2 stating in the high 80's to low 90's, chest x-ray ordered due to concerns about aspiration on tube feed, waiting for hospitalist to call back with recommendations, will continue to monitor
--- NOTE | 2018-12-14 18:20 | NUR ---
Received report from Carlos SAM. assumed care of patient.
--- NOTE | 2018-12-14 18:45 | NUR ---
late entry Hospitalist called back after rapid response was called, he ordered Zosyn 4.5mg and stated patient is stable enough on 15L O2 to stay on the 4th floor, the responding RESP THERAPIST and respiratory therapist believe patient should be on a BIpap and this recommendation was given to the hospitalist. report given to shift supervisor RN and patient will be watched closely Addendum: 12/19/18 at 1056 by Carlos Hairston RN patient was kept on 15L high flow and no BIPAP o2 was 89-91
--- NOTE | 2018-12-14 18:46 | NUR ---
Problems reprioritized. Patient report given, questions answered & plan of care reviewed with Maricarmen RN.
[2018-12-14] MEDS ORDERED: rocuronium 10mg/ml inj IV ONE (20:50)
[2018-12-14] MEDS ORDERED: etomidate 2mg/ml inj. IV ONE (20:50)
[2018-12-14] MEDS ORDERED: FENTANYL-0.9 % NACL/PF 100 ML IV PRN (20:51)
[2018-12-14] MEDS ORDERED: midazolam 100mg in NS 100ml 100 ML IV PRN (20:51)
[2018-12-14] MEDS ORDERED: albuterol 2.5 MG/3 ML nebule NEB PRN (20:55)
--- NOTE | 2018-12-14 21:10 | NUR ---
Was called to floor at 2044 to assist w/intubation of patient; upon arrival, pt being bagged by RT; Dr. moore at bedside; etomidate/ana given as ordered in LFA IV; pt intubated by w/o problems, VS as charted; pt transferred at 2104 in bed to 2012 on transport monitor; report given to CECY Webster.
--- NOTE | 2018-12-14 21:31 | NUR ---
At change of shift patient had rapid response team called for o2 sats in the low 70's. RT put patient on 15 liters of oxygen with humidifier. I was assessing the patient and constantly suctioning the patient. at 194 patients o2 sats was going down to low 80's. I called Dr. Ackerman and he ordered a Bipap and to transfer the patient to PCU. Arthur from RT came up and was attempting to suction patient, and patient threw up 500 cc's of emesis. at this point we called Dr. Ackerman and he came up to the floor. Intubated the patient and transferred patient to ICU. gave and called report to Darin SAM in the ICU. attempted to contact family members--with no response.
[2018-12-14] MEDS ORDERED: acetaminophen 650mg rectal suppository RC PRN ×2 (21:35)
[2018-12-14 22:00] LABS: ABG BASE EXCESS -7.6 mmol/L (-2.0-3.0); ABG HCO3 21.1 mmol/L (22.0-26.0); ABG OXYGEN SATURATION 91.4 % (95-98); ABG PH (T) 7.164 (7.350-7.450); ABG PO2 (T) 84.2 mmHg (83-108); ALLEN'S TEST Positive; FCOHb 0.6 % (0.5-1.5); FMetHb 0.4 % (0.3-1.12); FO2Hb 90.5 % (94-100); MINUTE VOLUME 7 L/min; PATIENT TEMPERATURE 39.4; PEEP 8 cm H2O; RESPIRATORY RATE 14 b/min; RESPIRATORY RATE (OBSERVED) 14 b/min; TIDAL VOLUME 500 mL; TOTAL HEMOGLOBIN 15.3 G/dl (14.0-17.9)
[2018-12-14 22:00] LABS: BASOPHILS % (AUTO) 0.1 % (0-1); EOSINOPHILS % (AUTO) 0 % (0-6); HEMATOCRIT 43.3 % (42.0-52.0); HEMOGLOBIN 14.3 g/dl (14.0-17.9); LYMPHOCYTES # (AUTO) 0.8 X10'3 (1.1-4.8); LYMPHOCYTES % (AUTO) 6.7 % (21-51); MEAN CORPUSCULAR HEMOGLOBIN 30.1 PG (27.0-31.0); MEAN CORPUSCULAR HGB CONC 32.9 g/dL (33.0-36.5); MEAN CORPUSCULAR VOLUME 91.3 FL (78-98); MEAN PLATELET VOLUME 10.5 FL (7.4-10.4); MONOCYTES # (AUTO) 0.2 X10'3 (0-0.9); MONOCYTES % (AUTO) 1.8 % (2-12); NEUTROPHILS # (AUTO) 10.3 X10'3 (1.8-7.7); NEUTROPHILS % (AUTO) 91.4 % (42-75); PLATELET COUNT 178 X10'3 (140-440); RED BLOOD COUNT 4.74 X10'6 (4.70-6.10); RED CELL DISTRIBUTION WIDTH 15.1 % (11.5-14.5); WHITE BLOOD COUNT 11.2 X10'3 (4.5-11.0)
[2018-12-14 22:11] LABS: PARTIAL THROMBOPLASTIN TIME 26 SECONDS (22-32)
[2018-12-14 22:22] LABS: ALANINE AMINOTRANSFERASE 19 U/L (12-78); ALBUMIN 2.7 G/DL (3.4-5.0); ALBUMIN/GLOBULIN RATIO 0.7 (1.1-1.5); ALKALINE PHOSPHATASE 105 IU/L (46-116); ANION GAP 11 (8-16); ASPARTATE AMINO TRANSFERASE 28 U/L (10-37); BILIRUBIN,TOTAL 0.6 MG/DL (0.1-1.0); BLOOD UREA NITROGEN 29 MG/DL (7-18); BUN/CREATININE RATIO 13.6 (5.4-32.0); CALCIUM 9.4 MG/DL (8.5-10.1); CHLORIDE 101 MMOL/L (99-107); CREATININE 2.13 MG/DL (0.60-1.10); GLUCOSE 124 MG/DL (70-104); PHOSPHORUS 3.7 MG/DL (2.3-4.5); POTASSIUM 3.9 MMOL/L (3.5-5.1); SODIUM 134 MMOL/L (135-145); TOTAL CARBON DIOXIDE 21.6 MMOL/L (24-32); TOTAL PROTEIN 6.7 G/DL (6.4-8.2); eGFR 31 ML/MIN
[2018-12-14] MEDS ORDERED: normal saline 1000ml 1,000 ML IV ONE ×2 (22:40)
[2018-12-14 23:35] LABS: CLARITY,URINE CLEAR (Clear); COLOR,URINE YELLOW (Yellow); GLUCOSE, URINE NEGATIVE (Neg); KETONES,URINE NEGATIVE (Neg); LEUKOCYTE ESTERASE ,URINE NEGATIVE (Neg); NITRITES, URINE NEGATIVE (Neg); OCCULT BLOOD,URINE NEGATIVE (Neg); PROTEIN,URINE NEGATIVE (Neg); UROBILINOGEN,URINE 0.2 E.U/dL (0.2-1.0)
[2018-12-14 23:40] LABS: UA COLLECTION TYPE FOLEY CATH
[2018-12-15] VITALS: BP 88/52
[2018-12-15] MEDS ORDERED: piperacillin/tazo 4.5gm/100ml 100 ML IV SCH
[2018-12-15 01:00] VITALS: BP 74/49
[2018-12-15] MEDS ORDERED: albumin (Human) 5% 250ml 250 ML IV ONE ×2 (01:05→01:35)
[2018-12-15] MEDS ORDERED: normal saline 1000ml 1,000 ML IV SCH (01:05)
[2018-12-15] MEDS ORDERED: DOPamine 400mg/D5W 250ml 250 ML IV SCH (01:35)
[2018-12-15 02:00] VITALS: BP 86/52
[2018-12-15] MEDS: ipratropium/albuterol 3ml nebule NEB SCH (02:55)
[2018-12-15 03:00] VITALS: BP 70/47
[2018-12-15 03:20] LABS: ABG BASE EXCESS -12.1 mmol/L (-2.0-3.0); ABG HCO3 14.5 mmol/L (22.0-26.0); ABG OXYGEN SATURATION 79.7 % (95-98); ABG PCO2 (T) 35.9 mmHg (35.0-45.0); ABG PH (T) 7.225 (7.350-7.450); ABG PO2 (T) 48.1 mmHg (83-108); FCOHb 0.3 % (0.5-1.5); FMetHb 0.3 % (0.3-1.12); FO2Hb 79.2 % (94-100); MINUTE VOLUME 18 L/min; PATIENT TEMPERATURE 37.3; PEEP 8 cm H2O; RESPIRATORY RATE 20 b/min; RESPIRATORY RATE (OBSERVED) 22 b/min; TIDAL VOLUME 500 mL; TOTAL HEMOGLOBIN 12.4 G/dl (14.0-17.9)
[2018-12-15] MEDS ORDERED: NORepinephrine 8mg/ 250ml NS 250 ML IV SCH (03:25)
[2018-12-15] MEDS ORDERED: NORepinephrine 8mg/ 250ml NS 250 ML IV ONE (03:27)
[2018-12-15 04:00] VITALS: BP 75/40
[2018-12-15] MEDS ORDERED: [UNRECOGNIZED DRUG - OTHER] IV SCH (04:10)
[2018-12-15] MEDS ORDERED: rocuronium 10mg/ml inj IV ONE ×2 (04:10→04:30)
[2018-12-15] MEDS ORDERED: NORMAL SALINE IV SCH (04:10)
[2018-12-15 04:22] LABS: BASOPHILS % (AUTO) 0.2 % (0-1); EOSINOPHILS % (AUTO) 0 % (0-6); HEMATOCRIT 37.6 % (42.0-52.0); LYMPHOCYTES # (AUTO) 0.6 X10'3 (1.1-4.8); LYMPHOCYTES % (AUTO) 8.5 % (21-51); MEAN CORPUSCULAR HEMOGLOBIN 30.3 PG (27.0-31.0); MEAN CORPUSCULAR HGB CONC 31.9 g/dL (33.0-36.5); MEAN PLATELET VOLUME 10.4 FL (7.4-10.4); MONOCYTES # (AUTO) 0.3 X10'3 (0-0.9); MONOCYTES % (AUTO) 3.9 % (2-12); NEUTROPHILS # (AUTO) 6.3 X10'3 (1.8-7.7); NEUTROPHILS % (AUTO) 87.4 % (42-75); PLATELET COUNT 130 X10'3 (140-440); RED BLOOD COUNT 3.96 X10'6 (4.70-6.10); RED CELL DISTRIBUTION WIDTH 15.3 % (11.5-14.5); WHITE BLOOD COUNT 7.2 X10'3 (4.5-11.0)
[2018-12-15] MEDS ORDERED: vasopressin inj. 20 UNIT in normal saline 100ml IV soln 39 ML IV SCH (04:35)
[2018-12-15 04:36] LABS: NEUTROPHILS % (MANUAL) 29 % (42-75); TOTAL CELLS COUNTED 100
[2018-12-15 04:37] LABS: BANDS% (MANUAL) 54 % (0-10); BURR CELLS 1+; GIANT PLATELET FEW; LARGE PLATELETS FEW; LYMPHOCYTES % (MANUAL) 8 % (21-51); MONOCYTES % (MANUAL) 3 % (2-12); PLATELET ESTIMATE DECREASED; REACTIVE LYMPHOCYTES % 4 % (0-0)
[2018-12-15] MEDS ORDERED: morphine 10mg/ml inj. IV PRN (04:40)
[2018-12-15 05:02] LABS: ALANINE AMINOTRANSFERASE 12 U/L (12-78); ALBUMIN 2.4 G/DL (3.4-5.0); ALBUMIN/GLOBULIN RATIO 0.9 (1.1-1.5); ALKALINE PHOSPHATASE 57 IU/L (46-116); ANION GAP 15 (8-16); ASPARTATE AMINO TRANSFERASE 28 U/L (10-37); BILIRUBIN,TOTAL 0.7 MG/DL (0.1-1.0); BLOOD UREA NITROGEN 28 MG/DL (7-18); BUN/CREATININE RATIO 12.6 (5.4-32.0); CALCIUM 8.2 MG/DL (8.5-10.1); CHLORIDE 105 MMOL/L (99-107); CREATININE 2.23 MG/DL (0.60-1.10); GLUCOSE 97 MG/DL (70-104); MAGNESIUM 1.8 MG/DL (1.5-2.4); PHOSPHORUS 3.4 MG/DL (2.3-4.5); POTASSIUM 3.8 MMOL/L (3.5-5.1); SODIUM 137 MMOL/L (135-145); TOTAL CARBON DIOXIDE 17.3 MMOL/L (24-32); TOTAL PROTEIN 5.2 G/DL (6.4-8.2); eGFR 29 ML/MIN
--- NOTE | 2018-12-15 05:15 | NUR ---
RN IS TO DOCUMENT YES TO ALL APPLICABLE AREAS Pronouncement of : 1. Time Physician Notified: [id number] 2. Date of : 12/15/2018 3. Time of : 512 4. DNR/Withdraw life support documented:YES 5. Monitor strip has been placed on chart:YES 6. Assessment process is of one-minute duration and includes following criteria: a) Patient is unresponsive to all stimuli: Y b) Pupils fixed and non-reactive:Y c) Auscultation of precordium reveals absence of heart tones:Y d) Auscultation of lungs reveals absence of breath sounds:Y e) Absence of blood pressure / all vital signs:Y f) QRS complexes are not present on monitor / EKG strip:Y g) Pacer spikes without capture: 4. Comments: Patient was deteriorating, on ventilator/100% FIo2, requiring vasopressors. Dr. Cooley came in to place central line. During this time Genevieve Valdivia NP was talking to family/caregiver and they decided to withdraw care. Comfort care order placed, patient extubated at 0505.
[2018-12-15] MEDS ORDERED: pantoprazole 40 MG vial IV SCH (08:00)
[2018-12-15] MEDS ORDERED: docusate sodium 100mg/10ml UD cup PO SCH (08:00)
--- NOTE | 2018-12-15 09:23 | NUR ---
Pt. body taken by Sha from [facility] at 0829.
[2018-12-16] MEDS ORDERED: mineral oil/petrolatum ophthal oint EACHEYE SCH (02:00)
== END 2018-12-15 08:45 | disposition expired | DRG 871 ==
LOC: ER 16:10 → ED HOLD 12-09 08:14 → ORTHO 4S 12-09 13:20 → OBSVTOIN 12-11 10:05 → CICU 2S 12-14 20:57
PROVIDERS: ADMIT Hospitalist; ATTEND Hospitalist
PROC: B32T1ZZ Computerized Tomography (CT Scan) of Left Pulmonary Artery using Low Osmolar Contrast (ICD-10-PCS; 2018-12-08)
PROC: B3201ZZ Computerized Tomography (CT Scan) of Thoracic Aorta using Low Osmolar Contrast (ICD-10-PCS; 2018-12-08)
PROC: B32S1ZZ Computerized Tomography (CT Scan) of Right Pulmonary Artery using Low Osmolar Contrast (ICD-10-PCS; 2018-12-08)
PROC: 0D20XUZ Change Feeding Device in Upper Intestinal Tract, External Approach (ICD-10-PCS; 2018-12-12)
PROC: 5A1935Z Respiratory Ventilation, Less than 24 Consecutive Hours (ICD-10-PCS; principal; 2018-12-14)
PROC: 0BH17EZ Insertion of Endotracheal Airway into Trachea, Via Natural or Artificial Opening (ICD-10-PCS; 2018-12-14)
PROC: 05HY33Z Insertion of Infusion Device into Upper Vein, Percutaneous Approach (ICD-10-PCS; 2018-12-15)
DX: A41.9 Sepsis, unspecified organism (principal); R65.21 Severe sepsis with septic shock; R53.2 Functional quadriplegia; J69.0 Pneumonitis due to inhalation of food and vomit; J96.01 Acute respiratory failure with hypoxia; K94.23 Gastrostomy malfunction; I69.354 Hemiplegia and hemiparesis following cerebral infarction affecting left non-dominant side; J44.9 Chronic obstructive pulmonary disease, unspecified; E87.6 Hypokalemia; R13.10 Dysphagia, unspecified; F17.210 Nicotine dependence, cigarettes, uncomplicated; G89.29 Other chronic pain; F41.9 Anxiety disorder, unspecified; I10 Essential (primary) hypertension; K21.0 Gastro-esophageal reflux disease with esophagitis; Z87.01 Personal history of pneumonia (recurrent); Z98.84 Bariatric surgery status; Z74.01 Bed confinement status; Z51.5 Encounter for palliative care; Z66 Do not resuscitate
CPT/HCPCS: 36415; 36600; 49450; 71045; 71046; 74018; 80048; 80053; 81001; 81003; 82803; 82948; 83036; 83605; 83735; 83880; 84100; 84134; 84145; 85018; 85025; 85379; 85610; 85730; 87040; 87070; 87077; 87081; 87186; 92508; 92616; 94002; 94003; 94640; 94760; 96361; 96365; 96366; 96368; 96375; 97110; 97162; 97530; 97535; 99285; B4087; G0378; J0456; J0696; J1265; J1650; J2250; J2270; J2405; J2543; J3010; J3480; J3490; P9045; Q9963; Q9967